=== PATIENT | female | born 1965 | race Caucasian/White ===

== ENCOUNTER → 2016-10-20 | Outpatient (CLI) | payer OTHER ==
[~2016-10-20] MED LIST: No meds per pt.; OMEP-110 PO; OXYC-302 PO; TRAM50TA2 PO
[2016-10-20 13:51] LABS: BLOOD UREA NITROGEN 19 mg/dL (7-18)
[2016-10-20 13:55] LABS: ASPARTATE AMINO TRANSFERASE 13 U/L (15-37); TOTAL IRON BINDING CAPACITY 364 mcg/dL (250-450); TRANSFERRIN 312 mg/dL (200-360)
== END | disposition home or self-care (01) ==
LOC: STAR 12:27
PROVIDERS: ATTEND Obstetrics & Gynecology
DX: Z01.818 Encounter for other preprocedural examination (principal); N92.1 Excessive and frequent menstruation with irregular cycle; N85.2 Hypertrophy of uterus; D25.9 Leiomyoma of uterus, unspecified; N94.6 Dysmenorrhea, unspecified
CPT/HCPCS: 36415; 80053; 82306; 82607; 82728; 82746; 83540; 83550; 84466; 84703; 85025

== ENCOUNTER 2016-10-26 10:01 | Observation (INO) | payer OTHER ==
[~2016-10-26] VITALS: Ht 170.2 cm; Wt 98.5 kg
[2016-10-26] MEDS ORDERED: LACTATED RINGERS 1,000 ML IV SCH ×2 (10:36→14:22)
[2016-10-26 11:10] VITALS: BP 156/90
[2016-10-26] MEDS ORDERED: VALA10004 PO (11:10)
[2016-10-26] MEDS ORDERED: BUPIVACAINE/PF 0.5% ONE (11:39)
[2016-10-26] MEDS ORDERED: FENTANYL PF 250 MCG/5ML ONE (11:52)
[2016-10-26] MEDS ORDERED: KETAMINE 10 MG/ML, 20ML ONE (11:52)
[2016-10-26] MEDS ORDERED: MIDAZOLAM 1 MG/ML, 2ML ONE (11:52)
[2016-10-26] MEDS ORDERED: METOCLOPRAMIDE 5 MG/ML, 2ML ONE (12:19)
[2016-10-26] MEDS ORDERED: DEXAMETHASONE 4 MG/ML, 1ML ONE (12:19)
[2016-10-26] MEDS ORDERED: EPHEDRINE 50 MG/ML, 1ML ONE (12:19)
[2016-10-26] MEDS ORDERED: PHENYLEPHRINE 10 MG/ML ONE (12:19)
[2016-10-26] MEDS ORDERED: ONDANSETRON 2MG/ML, 2ML ONE ×2 (12:19→14:35)
[2016-10-26] MEDS ORDERED: ROCURONIUM 10 MG/ML ONE (12:19)
[2016-10-26] MEDS ORDERED: PROPOFOL 10 MG/ML, 20ML ONE (12:19)
[2016-10-26] MEDS ORDERED: FENTANYL PF 100 MCG/2ML ONE (13:10)
[2016-10-26] MEDS ORDERED: OxyconTIN ER 10 MG TAB.ER PO PRN (14:30)
[2016-10-26] MEDS ORDERED: OXYcodone 5 MG/5 ML ORAL.SOL UDC PO PRN (14:30)
[2016-10-26] MEDS ORDERED: KETOROLAC 30 MG/1 ML IVPush PRN (14:30)
[2016-10-26] MEDS ORDERED: OXYcodone/APAP 5/325MG TABLET PO PRN (14:30)
[2016-10-26] MEDS ORDERED: MEPERIDINE/PF 25MG/0.5ML IVPush PRN (14:30)
[2016-10-26] MEDS ORDERED: ONDANSETRON 2MG/ML, 2ML IVPush PRN ×2 (14:30)
[2016-10-26] MEDS ORDERED: LABETALOL 5MG/ML, 20ML IV PRN (14:30)
[2016-10-26] MEDS ORDERED: FENTANYL PF 100 MCG/2ML IV PRN (14:30)
[2016-10-26] MEDS ORDERED: HYDROmorphone 2 MG/ML, 1ML IVPush PRN (14:30)
[2016-10-26] MEDS ORDERED: hydrALAzine 20 MG/ML, 1ML IV PRN (14:30)
[2016-10-26] MEDS ORDERED: MIDAZOLAM 1 MG/ML, 2ML IV PRN (14:30)
[2016-10-26] MEDS ORDERED: ACETAMINOPHEN 650 MG/20.3 ML UDC ONE (14:34)
[2016-10-26] MEDS ORDERED: HYDROmorphone 1 MG/ML, 1ML ONE (14:34)
[2016-10-26] MEDS ORDERED: OXYcodone 5 MG/5 ML ORAL.SOL UDC ONE (14:35)
[2016-10-26] MEDS ORDERED: KETOROLAC 30 MG/1 ML ONE (14:35)
[2016-10-26] MEDS: HYDROmorphone 1 MG/ML, 1ML IV PRN ×4 (14:39→15:06)
[2016-10-26] MEDS ORDERED: ACETAMINOPHEN 650 MG/20.3 ML UDC PO ONE (14:43)
[2016-10-26] MEDS ORDERED: DOCUSATE 100 MG CAPSULE PO SCH (21:00)
== END 2016-10-26 17:00 | disposition home or self-care (01) ==
LOC: OUT 10:01 → ORIP 14:22
PROVIDERS: ADMIT Obstetrics & Gynecology; ATTEND Obstetrics & Gynecology
DX: N92.1 Excessive and frequent menstruation with irregular cycle (principal); D25.0 Submucous leiomyoma of uterus; N85.2 Hypertrophy of uterus; N94.5 Secondary dysmenorrhea; R87.613 High grade squamous intraepithelial lesion on cytologic smear of cervix (HGSIL); R10.2 Pelvic and perineal pain; N87.1 Moderate cervical dysplasia
CPT/HCPCS: 58571; 88307; G0378; J1100; J1170; J1885; J2250; J2370; J2405; J2704; J2765; J3010; J3490; J7120